=== PATIENT | male | born 1990 | race Caucasian/White ===

== ENCOUNTER 2017-04-29 18:08 | Inpatient (IN) ==
[2017-04-29 19:03] LABS: Basophils # 0.1 K/mcL (0.0-0.2); Basophils % 0.7 %; Eosinophils # 0.5 K/mcL (0.0-0.6); Eosinophils % 4.3 %; Hemoglobin 15.2 g/dL (12.9-16.9); Immature Granulocytes % 0.2 % (0-4); Lymphocytes # 1.7 K/mcL (0.6-4.6); Lymphocytes % 15.9 %; Mean Corpuscular Volume 87.8 fL (83.0-100.0); Mean Platelet Volume 10.5 fL (9.4-12.4); Monocytes # 0.6 K/mcL (0.0-1.3); Neutrophils # 7.5 K/mcL (1.6-8.9); Platelet Count 228 K/mcL (140-400); Red Blood Count 5.24 M/mcL (4.19-5.50); Red Cell Distribution Width 13.2 % (11.5-14.5); Segmented Neutrophils % 72.9 %
[2017-04-29 19:25] LABS: Alanine Aminotransferase 22 Units/L (0-55); Albumin 3.7 g/dL (3.5-5.0); Albumin/Globulin Ratio 0.9 (1.1-2.2); Alkaline Phosphatase 95 Units/L (38-126); Aspartate Amino Transferase 21 Units/L (5-34); BUN/Creatinine Ratio 9 (6-26); Blood Urea Nitrogen 9 mg/dL (8-26); Calcium 9.3 mg/dL (8.6-10.8); Carbon Dioxide 31 mEq/L (19-29); Chloride 105 mEq/L (98-109); Globulin 3.9 g/dL (2.4-3.5); Glucose 74 mg/dL (70-99); Osmolality,Calculated 289 (280-300); Potassium 4.1 mEq/L (3.5-4.5); Sodium 141 mEq/L (136-145); Total Protein 7.6 g/dL (6.0-8.3); eGFR For African Americans > 60 (> 60); eGFR For Non-African Americans > 60 (> 60)
--- NOTE | 2017-04-29 19:29 | Emergency Department Note ---
Overdose - MDM Narrative Medical decision making narrative: Bpod team will follow-up on the consult for mental health to determine final disposition - Lab Data Result diagrams: 04/29/17 18:50 04/29/17 18:50 Lab Results 04/29/17 04/29/17 04/29/17 Range/Units 18:50 18:50 18:50 WBC 10.4 (4.3-11.1) K/mcL RBC 5.24 (4.19-5.50) M/mcL Hgb 15.2 (12.9-16.9) g/dL Hct 46.0 (37.5-50.1) % MCV 87.8 (83.0-100.0) fL MCH 29.0 (28.0-33.3) pg MCHC 33.0 (31.6-35.5) g/dL RDW 13.2 (11.5-14.5) % Plt Count 228 (140-400) K/mcL MPV 10.5 (9.4-12.4) fL Immature Gran % 0.2 (0-4) % Seg Neutrophils % 72.9 % Lymphocytes % 15.9 % Monocytes % 6.0 % Eosinophils % 4.3 % Basophils % 0.7 % Neutrophils # 7.5 (1.6-8.9) K/mcL Lymphocytes # 1.7 (0.6-4.6) K/mcL Monocytes # 0.6 (0.0-1.3) K/mcL Eosinophils # 0.5 (0.0-0.6) K/mcL Basophils # 0.1 (0.0-0.2) K/mcL Sodium 141 (136-145) mEq/L Potassium 4.1 (3.5-4.5) mEq/L Chloride 105 (98-109) mEq/L Carbon Dioxide 31 H (19-29) mEq/L BUN 9 (8-26) mg/dL Creatinine 1.02 (0.72-1.25) mg/dL Est GFR ( Amer) > 60 (> 60) Est GFR (Non-Af Amer) > 60 (> 60) BUN/Creatinine Ratio 9 (6-26) Glucose 74 (70-99) mg/dL Calculated Osmolality 289 (280-300) Calcium 9.3 (8.6-10.8) mg/dL Total Bilirubin < 0.2 L (0.2-1.2) mg/dL AST 21 (5-34) Units/L ALT 22 (0-55) Units/L Alkaline Phosphatase 95 (38-126) Units/L Serum Total Protein 7.6 (6.0-8.3) g/dL Albumin 3.7 (3.5-5.0) g/dL Globulin 3.9 H (2.4-3.5) g/dL Albumin/Globulin Ratio 0.9 L (1.1-2.2) Salicylates < 5.0 L (15-30) mg/dL Urine Opiates Screen (Qatbgq=738) ng/mL Acetaminophen < 1.0 L (10-30) mcg/mL Ur Barbiturates Screen (Frjaff=826) ng/mL Ur Phencyclidine Scrn (Cutoff=25) ng/mL Ur Amphetamines Screen (Gnkrjy=1776) ng/mL U Benzodiazepines Scrn (Ofysps=288) ng/mL Urine Cocaine Screen (Cutoff= 300) ng/mL U Marijuana (THC) Screen (Cutoff = 50) ng/mL Ethyl Alcohol < 10 (0-10) mg/dL 04/29/17 Range/Units 19:41 WBC (4.3-11.1) K/mcL RBC (4.19-5.50) M/mcL Hgb (12.9-16.9) g/dL Hct (37.5-50.1) % MCV (83.0-100.0) fL MCH (28.0-33.3) pg MCHC (31.6-35.5) g/dL RDW (11.5-14.5) % Plt Count (140-400) K/mcL MPV (9.4-12.4) fL Immature Gran % (0-4) % Seg Neutrophils % % Lymphocytes % % Monocytes % % Eosinophils % % Basophils % % Neutrophils # (1.6-8.9) K/mcL Lymphocytes # (0.6-4.6) K/mcL Monocytes # (0.0-1.3) K/mcL Eosinophils # (0.0-0.6) K/mcL Basophils # (0.0-0.2) K/mcL Sodium (136-145) mEq/L Potassium (3.5-4.5) mEq/L Chloride (98-109) mEq/L Carbon Dioxide (19-29) mEq/L BUN (8-26) mg/dL Creatinine (0.72-1.25) mg/dL Est GFR ( Amer) (> 60) Est GFR (Non-Af Amer) (> 60) BUN/Creatinine Ratio (6-26) Glucose (70-99) mg/dL Calculated Osmolality (280-300) Calcium (8.6-10.8) mg/dL Total Bilirubin (0.2-1.2) mg/dL AST (5-34) Units/L ALT (0-55) Units/L Alkaline Phosphatase (38-126) Units/L Serum Total Protein (6.0-8.3) g/dL Albumin (3.5-5.0) g/dL Globulin (2.4-3.5) g/dL Albumin/Globulin Ratio (1.1-2.2) Salicylates (15-30) mg/dL Urine Opiates Screen Positive H (Zrbphx=437) ng/mL Acetaminophen (10-30) mcg/mL Ur Barbiturates Screen Negative (Xijwzw=559) ng/mL Ur Phencyclidine Scrn Negative (Cutoff=25) ng/mL Ur Amphetamines Screen Positive H (Ipqgeh=2938) ng/mL U Benzodiazepines Scrn Negative (Psfoqs=901) ng/mL Urine Cocaine Screen Positive H (Cutoff= 300) ng/mL U Marijuana (THC) Screen Positive H (Cutoff = 50) ng/mL Ethyl Alcohol (0-10) mg/dL Overdose HPI - General Chief Complaint: ED Overdose Stated Complaint: OD Source: patient Limitations: no limitations Nursing Notes Reviewed: Yes Vital Signs Reviewed: Yes - History of Present Illness HPI Narrative: Patient presents with complaint of drug overdose. Initially when I interviewed the patient he denied side ideation. He did admit later on to his mother that he did this in the in attempt to hurt himself. Patient states that he he did not know what he took. While talking to the patient he will be a note on my phone the state that he took here 30 to 45 minutes prior to EMS arrival. And he thought that fentyl was mixed in with it. He stated he snorted not injected. States he has has not done this in the past. Pt Subjective Complaint: intentional overdose - Related Data Previous Rx's Medication Instructions Recorded Penicillin VK 500 mg PO QID #28 tablet 06/17/15 Allergies Allergy/AdvReac Type Severity Reaction Status Date / Time No Known Allergies Allergy Verified 06/17/15 10:25 All systems ED: reviewed and negative except as stated. Past Medical History - Past Medical History Source: patient Medical history: Reports: no medical history Psychiatric history: Reports: anxiety, depression - Social History Smoking Status: Current every day smoker Smokeless Tobacco Status: No Alcohol use: Reports: rarely Drug use: Reports: opiates, marijuana Physical Exam - General Limitations: no limitations General appearance: obtunded - Head Head exam: atraumatic, normocephalic, normal inspection - Eye Eye exam: Present: normal appearance, PERRL, EOMI - ENT ENT exam: normal exam, normal oropharynx, mucous membranes moist - Neck Neck exam: Present: normal inspection, full ROM, trachea midline - Chest Chest inspection: Present: normal inspection, symmetric chest wall rise - Respiratory Respiratory exam: Present: normal lung sounds bilaterally - Cardiovascular Cardiovascular exam: Present: regular rate, normal rhythm, normal heart sounds - Abdominal Exam Abdominal exam: Present: soft, Non-Tender. Absent: tenderness, distention, guarding, rebound, rigidity - Extremities Exam Extremities exam: Present: normal inspection, full ROM. Absent: tenderness, pedal edema - Back Exam Back exam: Present: normal inspection, full ROM. Absent: tenderness - Neurological Exam Neurological exam: Present: alert, oriented X3 - Psychiatric Psychiatric exam: Present: normal affect, normal mood - Skin Skin exam: Present: warm, dry, intact, normal color Course Vital Signs Temperature 97.5 F L 04/29/17 18:10 Pulse Rate 81 04/29/17 18:10 Respiratory Rate 16 04/29/17 18:10 Blood Pressure 135/88 04/29/17 18:10 O2 Sat by Pulse Oximetry 98 04/29/17 18:10 Temperature 97.5 F L 04/29/17 18:10 Pulse Rate 75 04/29/17 19:26 Respiratory Rate 18 04/29/17 19:26 Blood Pressure 136/94 04/29/17 19:26 O2 Sat by Pulse Oximetry 97 04/29/17 19:26 Oxygen Delivery Oxygen Delivery Room Air Disposition Clinical Impression: Suicidal ideation Disposition: Still a Patient Referrals: NONE,PCP [Primary Care Provider] - Forms: ED Satisfaction Letter
[2017-04-29 19:32] LABS: Acetaminophen < 1.0 mcg/mL (10-30); Bilirubin,Total < 0.2 mg/dL (0.2-1.2); Ethanol < 10 mg/dL (0-10); Salicylate < 5.0 mg/dL (15-30)
[2017-04-29 20:16] LABS: Amphetamine Screen,Urine Positive ng/mL (Cutoff=1000); Barbiturate Screen,Urine Negative ng/mL (Cutoff=200); Benzodiazepines Screen,Urine Negative ng/mL (Cutoff=200); Cannabinoid Screen,Urine Positive ng/mL (Cutoff = 50); Cocaine Screen,Urine Positive ng/mL (Cutoff= 300); Opiate Screen,Urine Positive ng/mL (Cutoff=300); Phencyclidine Screen,Urine Negative ng/mL (Cutoff=25)
--- NOTE | 2017-04-29 21:01 | Emergency Department Note ---
Disposition Clinical Impression: Suicidal ideation Overdose Qualifiers: Encounter type: initial encounter Injury intent: intentional self-harm Qualified Code(s): T50.902A - Poisoning by unspecified drugs, medicaments and biological substances, intentional self-harm, initial encounter Disposition: Admitted As Inpatient Referrals: NONE,PCP [Primary Care Provider] - Forms: ED Satisfaction Letter Time of Disposition: 22:11 General Adult HPI - General Chief complaint: ED Overdose Stated complaint: OD Source: patient Limitations: no limitations - History of Present Illness Pain Scale: 0 - Related Data Previous Rx's Medication Instructions Recorded Penicillin VK 500 mg PO QID #28 tablet 06/17/15 Allergies Allergy/AdvReac Type Severity Reaction Status Date / Time No Known Allergies Allergy Verified 06/17/15 10:25 Past Medical History - Past Medical History Medical history: Reports: no medical history Psychiatric history: Reports: anxiety, depression - Social History Smoking Status: Current every day smoker Smokeless Tobacco Status: No Alcohol use: Reports: rarely Drug use: Reports: opiates, marijuana Physical Exam - General Limitations: no limitations General appearance: obtunded Course Vital Signs Temperature 97.5 F L 04/29/17 18:10 Pulse Rate 81 04/29/17 18:10 Respiratory Rate 16 04/29/17 18:10 Blood Pressure 135/88 04/29/17 18:10 O2 Sat by Pulse Oximetry 98 04/29/17 18:10 Temperature 97.5 F L 04/29/17 18:10 Pulse Rate 75 04/29/17 19:26 Respiratory Rate 18 04/29/17 19:26 Blood Pressure 136/94 04/29/17 19:26 O2 Sat by Pulse Oximetry 97 04/29/17 19:26 Oxygen Delivery Oxygen Delivery Room Air Medical Decision Making - Lab Data Result diagrams: 04/29/17 18:50 04/29/17 18:50 Lab Results 04/29/17 04/29/17 04/29/17 Range/Units 18:50 18:50 18:50 WBC 10.4 (4.3-11.1) K/mcL RBC 5.24 (4.19-5.50) M/mcL Hgb 15.2 (12.9-16.9) g/dL Hct 46.0 (37.5-50.1) % MCV 87.8 (83.0-100.0) fL MCH 29.0 (28.0-33.3) pg MCHC 33.0 (31.6-35.5) g/dL RDW 13.2 (11.5-14.5) % Plt Count 228 (140-400) K/mcL MPV 10.5 (9.4-12.4) fL Immature Gran % 0.2 (0-4) % Seg Neutrophils % 72.9 % Lymphocytes % 15.9 % Monocytes % 6.0 % Eosinophils % 4.3 % Basophils % 0.7 % Neutrophils # 7.5 (1.6-8.9) K/mcL Lymphocytes # 1.7 (0.6-4.6) K/mcL Monocytes # 0.6 (0.0-1.3) K/mcL Eosinophils # 0.5 (0.0-0.6) K/mcL Basophils # 0.1 (0.0-0.2) K/mcL Sodium 141 (136-145) mEq/L Potassium 4.1 (3.5-4.5) mEq/L Chloride 105 (98-109) mEq/L Carbon Dioxide 31 H (19-29) mEq/L BUN 9 (8-26) mg/dL Creatinine 1.02 (0.72-1.25) mg/dL Est GFR ( Amer) > 60 (> 60) Est GFR (Non-Af Amer) > 60 (> 60) BUN/Creatinine Ratio 9 (6-26) Glucose 74 (70-99) mg/dL Calculated Osmolality 289 (280-300) Calcium 9.3 (8.6-10.8) mg/dL Total Bilirubin < 0.2 L (0.2-1.2) mg/dL AST 21 (5-34) Units/L ALT 22 (0-55) Units/L Alkaline Phosphatase 95 (38-126) Units/L Serum Total Protein 7.6 (6.0-8.3) g/dL Albumin 3.7 (3.5-5.0) g/dL Globulin 3.9 H (2.4-3.5) g/dL Albumin/Globulin Ratio 0.9 L (1.1-2.2) Salicylates < 5.0 L (15-30) mg/dL Urine Opiates Screen (Isdfcg=414) ng/mL Acetaminophen < 1.0 L (10-30) mcg/mL Ur Barbiturates Screen (Yrrutb=365) ng/mL Ur Phencyclidine Scrn (Cutoff=25) ng/mL Ur Amphetamines Screen (Jwqluc=2619) ng/mL U Benzodiazepines Scrn (Jibvmo=741) ng/mL Urine Cocaine Screen (Cutoff= 300) ng/mL U Marijuana (THC) Screen (Cutoff = 50) ng/mL Ethyl Alcohol < 10 (0-10) mg/dL 04/29/17 Range/Units 19:41 WBC (4.3-11.1) K/mcL RBC (4.19-5.50) M/mcL Hgb (12.9-16.9) g/dL Hct (37.5-50.1) % MCV (83.0-100.0) fL MCH (28.0-33.3) pg MCHC (31.6-35.5) g/dL RDW (11.5-14.5) % Plt Count (140-400) K/mcL MPV (9.4-12.4) fL Immature Gran % (0-4) % Seg Neutrophils % % Lymphocytes % % Monocytes % % Eosinophils % % Basophils % % Neutrophils # (1.6-8.9) K/mcL Lymphocytes # (0.6-4.6) K/mcL Monocytes # (0.0-1.3) K/mcL Eosinophils # (0.0-0.6) K/mcL Basophils # (0.0-0.2) K/mcL Sodium (136-145) mEq/L Potassium (3.5-4.5) mEq/L Chloride (98-109) mEq/L Carbon Dioxide (19-29) mEq/L BUN (8-26) mg/dL Creatinine (0.72-1.25) mg/dL Est GFR ( Amer) (> 60) Est GFR (Non-Af Amer) (> 60) BUN/Creatinine Ratio (6-26) Glucose (70-99) mg/dL Calculated Osmolality (280-300) Calcium (8.6-10.8) mg/dL Total Bilirubin (0.2-1.2) mg/dL AST (5-34) Units/L ALT (0-55) Units/L Alkaline Phosphatase (38-126) Units/L Serum Total Protein (6.0-8.3) g/dL Albumin (3.5-5.0) g/dL Globulin (2.4-3.5) g/dL Albumin/Globulin Ratio (1.1-2.2) Salicylates (15-30) mg/dL Urine Opiates Screen Positive H (Qpygnb=802) ng/mL Acetaminophen (10-30) mcg/mL Ur Barbiturates Screen Negative (Pfhbgc=787) ng/mL Ur Phencyclidine Scrn Negative (Cutoff=25) ng/mL Ur Amphetamines Screen Positive H (Umnesj=1880) ng/mL U Benzodiazepines Scrn Negative (Wvujlq=404) ng/mL Urine Cocaine Screen Positive H (Cutoff= 300) ng/mL U Marijuana (THC) Screen Positive H (Cutoff = 50) ng/mL Ethyl Alcohol (0-10) mg/dL Attestation Statement - Attestation Attestation: Care of patient assumed from Dr. Urrutia at 9 PM pending behavioral consultation. Patient resting comfortably at the time of my exam-sleeping. Labs including urine drug screen reviewed by me. 1A contacted for consultation 22:10: Clear to be endorsed to Dr. Saez at 23:00 pending completion of behavioral consultation
[2017-04-29] MEDS ORDERED: *HR* LORazepam 2 MG/ML VIAL IM PRN (23:42)
[2017-04-29] MEDS ORDERED: hydrOXYzine pamoate 25 MG CAPSULE PO PRN (23:42)
[2017-04-29] MEDS ORDERED: Haloperidol Lactate 5 MG/ML VIAL IM PRN (23:42)
[2017-04-29] MEDS ORDERED: Ibuprofen 400 MG TABLET PO PRN (23:42)
[2017-04-29] MEDS ORDERED: Mag Hydrox/Al Hydrox/Simeth 30 ML UDC PO PRN (23:42)
[2017-04-29] MEDS ORDERED: *HR* LORazepam 1 MG TABLET PO PRN (23:42)
[2017-04-29] MEDS ORDERED: MOM Conc 10 ML UD.LIQ PO PRN (23:42)
[2017-04-29] MEDS ORDERED: Methocarbamol 750 MG TABLET PO PRN (23:49)
[2017-04-29] MEDS ORDERED: Ondansetron ODT 4 MG TAB.RAPDIS SL PRN (23:50)
[2017-04-30] MEDS ORDERED: Ibuprofen 600 MG TABLET PO PRN (00:30)
[2017-04-30] MEDS: traZODone 50 MG TABLET PO PRN ×2 (00:52→21:39)
[2017-04-30] MEDS: Nicotine 21 MG PATCH.TD24 TD SCH (09:31)
--- NOTE | 2017-04-30 12:35 | Electrocardiograph Report ---
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
--- NOTE | 2017-04-30 13:29 | Psychiatry History & Physical ---
Date of Encounter: 04/30/17 Time of Encounter: 01:20 History of Present Illness Patient Stated Chief Complaint: Drug overdose Medicare Admission Attestation: For traditional Medicare patients the provided hospital inpatient services are reasonable and necessary and in the case of services not specified as inpatient -only under 42 CFR 419.22 (n), that they are appropriately provided as inpatient services in accordance 42 CFR 412.3. For Critical Access Hospital the patient may reasonably be expected to be discharged or transferred to a hospital within 96 hours after admission to the Critical Access Hospital. Admitted From: Emergency Dept Plans for Post Hospital Care: Home History of Present Illness: Mr. Cruz is a 27 year old male who was brought to the emergency department after he overdosed on heroin. Initially patient was denying that it was a suicide attempt but then he told his mother that it was an attempt to take his life. He also texted mom that it was a suicide attempt. During the interview with me, initially he denied that it was a suicide attempt and reported that he told his mother that it was a suicide attempt so that he does not get into trouble for using drugs. We called mother who reported that patient has underlying psychiatric issues and has been self-medicating with drugs and she believed that it was a suicide attempt and he needs to be in the hospital to receive psychiatric care. I went back to the patient and told him about my conversation with his mother. Patient did open up and reports that he has been struggling from anxiety symptoms for a while. He reported restlessness nervousness tremor and shakes palpitations and racing thoughts. He also reported that he is been noticing some depression with anhedonia withdrawn behavior, hopeless and helpless feelings. Patient reported that he started using drugs approximately 8 months ago but he has been using heroine off and on. He reported that he was sober for 15 days up until yesterday when he used heroine and became unresponsive. Since patient overdosed on heroin and is reporting the above-mentioned symptoms of depression and anxiety depression and anxiety,it is decided to keep the patient on the psychiatric facility for further stabilization Patient is agreeable on staying in the hospital and receiving treatment. Past Med Surg Social Fam HX - Past Medical History Medical history: no medical history - Past Psychiatric History Psychiatric history: Reports: no psych history Past psychiatric history details: No prior psychiatric hospitalization or treatment. Patient is currently on no psychiatric medications. Family psychiatric history: No Family History of Suicide: None - Past Surgical History Surgical History: no surgical history - Social History Smoking Status: Current every day smoker Smokeless Tobacco Status: No Alcohol use: rarely Drug use: opiates, marijuana Occupational status: unemployed Current living situation: Home Activity Level: Independent ambulation Recent Out of Country Travel Within the Last 8 Weeks: No Exposure or Possible Exposure to Illness During Travel: No Additional social history: Patient was born and raised in [place]. Reported okay childhood. He graduated high school. He has one 8-year-old son from a previous relationship. Currently he is in a relationship with his girlfriend since last year and a half or so. 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 He is currently residing at his cousins with this mother and girlfriend. He denies any legal issues Medications & Allergies No Known Home Drugs 04/30/17 [History] 3 Allergy/AdvReac Type Severity Reaction Status Date / Time No Known Allergies Allergy Verified 06/17/15 10:25 Review of Systems Psychiatric: Reports: depression, anxiety, anhedonia, difficulty concentrating, hopelessness, panic attacks Mental Status Exam Patient orientation: Yes Person, Yes Time, Yes Place Level of alertness: Alert Patient appearance: Appropriate, Well Groomed Behavior: cooperative, nervous Psychomotor activity: Normal Eye contact: Maintains Eye Contact Mood description: Depressed, Anxious Affect description: constricted, dysphoric Speech pattern: Normal rate, Normal rhythm, Normal tone Speech volume: Normal Thought process: Linear, Goal Oriented Thought content: No Suicidal ideation, No Homicidal ideation, No Overt delusions Perceptual disturbances: No Auditory hallucinations, No Visual hallucinations Attention span: Capable of Focused Attention Memory description: Grossly Intact Patient reliability: Reliable Historian Intelligence estimate: Average Judgment: Limited Insight: Partial Exam - HEENT Head exam IM: Present: normal inspection Eye exam IM: Present: normal appearance ENT exam IM: Present: normal exam - Neurological Neurological exam IM: Present: alert, CN II-XII intact, normal gait, oriented X3 , reflexes normal, strengths equal and symetr throughout. Absent: motor sensory deficit, speech deficit - Respiratory Respiratory exam IM: Absent: respiratory distress - GI/Abdominal GI/Abdominal exam IM: Present: soft. Absent: tenderness - Extremities Extremities exam IM: Present: full ROM, normal inspection - Skin Skin exam IM: Present: intact Results - Vital Signs Vital signs: Temp Pulse Resp BP Pulse Ox 97.2 F L 77 16 110/69 97 04/30/17 08:00 04/30/17 08:00 04/30/17 08:00 04/30/17 08:00 04/29/17 19:26 - Labs Labs: Laboratory Last Values WBC 10.4 K/mcL (4.3-11.1) 04/29/17 18:50 RBC 5.24 M/mcL (4.19-5.50) 04/29/17 18:50 Hgb 15.2 g/dL (12.9-16.9) 04/29/17 18:50 Hct 46.0 % (37.5-50.1) 04/29/17 18:50 MCV 87.8 fL (83.0-100.0) 04/29/17 18:50 MCH 29.0 pg (28.0-33.3) 04/29/17 18:50 MCHC 33.0 g/dL (31.6-35.5) 04/29/17 18:50 RDW 13.2 % (11.5-14.5) 04/29/17 18:50 Plt Count 228 K/mcL (140-400) 04/29/17 18:50 MPV 10.5 fL (9.4-12.4) 04/29/17 18:50 Immature Gran % 0.2 % (0-4) 04/29/17 18:50 Seg Neutrophils % 72.9 % 04/29/17 18:50 Lymphocytes % 15.9 % 04/29/17 18:50 Monocytes % 6.0 % 04/29/17 18:50 Eosinophils % 4.3 % 04/29/17 18:50 Basophils % 0.7 % 04/29/17 18:50 Neutrophils # 7.5 K/mcL (1.6-8.9) 04/29/17 18:50 Lymphocytes # 1.7 K/mcL (0.6-4.6) 04/29/17 18:50 Monocytes # 0.6 K/mcL (0.0-1.3) 04/29/17 18:50 Eosinophils # 0.5 K/mcL (0.0-0.6) 04/29/17 18:50 Basophils # 0.1 K/mcL (0.0-0.2) 04/29/17 18:50 Sodium 141 mEq/L (136-145) 04/29/17 18:50 Potassium 4.1 mEq/L (3.5-4.5) 04/29/17 18:50 Chloride 105 mEq/L (98-109) 04/29/17 18:50 Carbon Dioxide 31 mEq/L (19-29) H 04/29/17 18:50 BUN 9 mg/dL (8-26) 04/29/17 18:50 Creatinine 1.02 mg/dL (0.72-1.25) 04/29/17 18:50 Est GFR ( Amer) > 60 (> 60) 04/29/17 18:50 Est GFR (Non-Af Amer) > 60 (> 60) 04/29/17 18:50 BUN/Creatinine Ratio 9 (6-26) 04/29/17 18:50 Glucose 74 mg/dL (70-99) 04/29/17 18:50 Calculated Osmolality 289 (280-300) 04/29/17 18:50 Calcium 9.3 mg/dL (8.6-10.8) 04/29/17 18:50 Total Bilirubin < 0.2 mg/dL (0.2-1.2) L 04/29/17 18:50 AST 21 Units/L (5-34) 04/29/17 18:50 ALT 22 Units/L (0-55) 04/29/17 18:50 Alkaline Phosphatase 95 Units/L (38-126) 04/29/17 18:50 Serum Total Protein 7.6 g/dL (6.0-8.3) 04/29/17 18:50 Albumin 3.7 g/dL (3.5-5.0) 04/29/17 18:50 Globulin 3.9 g/dL (2.4-3.5) H 04/29/17 18:50 Albumin/Globulin Ratio 0.9 (1.1-2.2) L 04/29/17 18:50 Salicylates < 5.0 mg/dL (15-30) L 04/29/17 18:50 Urine Opiates Screen Positive ng/mL (Rosxdu=098) H 04/29/17 19:41 Acetaminophen < 1.0 mcg/mL (10-30) L 04/29/17 18:50 Ur Barbiturates Screen Negative ng/mL (Fazueu=409) 04/29/17 19:41 Ur Phencyclidine Scrn Negative ng/mL (Cutoff=25) 04/29/17 19:41 Ur Amphetamines Screen Positive ng/mL (Wsugam=6382) H 04/29/17 19:41 U Benzodiazepines Scrn Negative ng/mL (Nfrjqt=443) 04/29/17 19:41 Urine Cocaine Screen Positive ng/mL (Cutoff= 300) H 04/29/17 19:41 U Marijuana (THC) Screen Positive ng/mL (Cutoff = 50) H 04/29/17 19:41 Ethyl Alcohol < 10 mg/dL (0-10) 04/29/17 18:50 Assessment and Plan (1) INDIRA (generalized anxiety disorder) Current visit: Yes Status: Acute Plan: Admit inpatient for safety and stabilization, Close observation, Suicide Precautions per unit protocol, Encourage participation in unit milieu, Group Therapy, Monitor sleep, Monitor appetite Additional Plan: We will start the patient on Celexa 20 mg daily and Vistaril 25 mg 3 times a day for his anxiety symptoms Risks, benefits, side effects, alternatives discussed w/pt: Yes Patient agreeable to treatment: Yes Plans for Post Hospital Care: Home Estimated Length of Stay (Days): 2 (2) Opioid abuse Current visit: Yes Status: Acute Plan: Admit inpatient for safety and stabilization, Close observation, Suicide Precautions per unit protocol, Encourage participation in unit milieu, Group Therapy, Monitor sleep, Monitor appetite Additional Plan: Patient will be counseled extensively regarding his opioid use and his psychological and physiological impact and will be helped to identify triggers and develop relapse prevention plan Risks, benefits, side effects, alternatives discussed w/pt: Yes Patient agreeable to treatment: Yes Plans for Post Hospital Care: Home Estimated Length of Stay (Days): 2
[2017-04-30] MEDS: hydrOXYzine pamoate 25 MG CAPSULE PO SCH ×2 (15:56→20:33)
[2017-05-01] MEDS: Nicotine 21 MG PATCH.TD24 TD SCH (09:02)
[2017-05-01] MEDS: hydrOXYzine pamoate 25 MG CAPSULE PO SCH ×3 (09:13→21:12)
--- NOTE | 2017-05-01 15:56 | Psychiatry Progress Note ---
Date of Encounter: 05/01/17 Time of Encounter: 14:45 Subjective Interval history: Patient is seen today for follow-up of his anxiety and opiate dependence. Staff spoke to his mom who has concerns that he may be trying to hurt himself. He denies these claims and states that he accidentally overdosed and that another time when he took sleeping pills he was not intending to kill himself but just simply trying to go to sleep. We discussed that some of his behaviors concerning even if he was an attempt to kill himself and the patient did verbalize that he understands why his mother is concerned about his mood and his behaviors. He is considering substance abuse treatment as an outpatient. He is willing to try the Celexa for mood and anxiety. He continues to deny suicidal thoughts today. He is willing to continue to participate in care and does feel he needs help coping with anxiety and stress. Review of Systems Psychiatric: Reports: depression, anxiety, abnormal sleep pattern, anhedonia, difficulty concentrating, hopelessness, irritability, panic attacks. Denies: suicidal ideation Objective: Exam Patient orientation: Yes Person, Yes Time, Yes Place Level of alertness: Alert Patient appearance: Appropriate Behavior: calm, guarded Psychomotor activity: Normal Eye contact: Maintains Eye Contact Mood description: Euthymic/stable Affect description: congruent with mood Speech pattern: Normal rate, Normal rhythm, Normal tone Speech volume: Normal Thought process: Intact, Logical, Goal Oriented Thought content: No Suicidal ideation, No Homicidal ideation Perceptual disturbances: No Auditory hallucinations, No Visual hallucinations Judgment: Limited Insight: Partial Results - Vital Signs Vital Signs: Temp Pulse Resp BP Pulse Ox 98.4 F 56 18 124/75 97 05/01/17 13:00 05/01/17 13:00 05/01/17 13:00 05/01/17 13:00 04/29/17 19:26 Assessment and Plan (1) Depression Current visit: Yes Status: Acute Plan: Continue hospitalization, Close observation, Suicide Precautions per unit protocol, Encourage participation in unit milieu, Group Therapy, Monitor sleep, Monitor appetite Additional Plan: Patient admits to some underlying depressed mood as well as anxiety symptoms. He continues to deny suicidal ideations and states that he did not intend to hurt himself but is gaining more insight into the concern his family may have about some of his actions. Continue Celexa at current dosage. Encourage positive coping strategies and group attendance. (2) INDIRA (generalized anxiety disorder) Current visit: Yes Status: Acute Plan: Continue hospitalization, Close observation, Suicide Precautions per unit protocol, Encourage participation in unit milieu, Group Therapy, Monitor sleep, Monitor appetite Risks, benefits, side effects, alternatives discussed w/pt: Yes Patient agreeable to treatment: Yes (3) Opioid abuse Current visit: Yes Status: Acute Plan: Continue hospitalization, Close observation, Suicide Precautions per unit protocol, Encourage participation in unit milieu, Group Therapy, Monitor sleep, Monitor appetite Additional Plan: We discussed that patient needs to discontinue opiate use as this has been a serious issue and affected his anxiety as well as his mood. Patient is interested in outpatient substance abuse treatment. Risks, benefits, side effects, alternatives discussed w/pt: Yes Patient agreeable to treatment: Yes Consult Discharge Plan - Plan [facility]
[2017-05-01] MEDS: traZODone 50 MG TABLET PO PRN (21:12)
[2017-05-02] MEDS: Nicotine 21 MG PATCH.TD24 TD SCH (09:21)
[2017-05-02] MEDS: hydrOXYzine pamoate 25 MG CAPSULE PO SCH (09:24)
--- NOTE | 2017-05-02 10:08 | Discharge Summary ---
Date of Encounter: 05/02/17 Time of Encounter: 09:00 Diagnosis - Discharge Diagnosis (1) INDIRA (generalized anxiety disorder) Priority: Primary Status: Acute (2) Depression Priority: Primary Status: Acute Qualifiers: Depression Type: unspecified Qualified Code(s): F32.9 - Major depressive disorder, single episode, unspecified (3) Opioid abuse Priority: Secondary Status: Acute Medications - Discharge Medications Prescriptions: Citalopram [CeleXA] 20 mg PO DAILY #30 tablet hydrOXYzine pamoate [HydrOXYzine Pamoate] 25 mg PO TID #90 capsule traZODone [TraZODone] 50 mg PO HS PRN #90 tablet PRN Reason: Insomnia Citalopram [CeleXA] 20 mg PO DAILY #30 tablet 05/02/17 [Rx] hydrOXYzine pamoate [HydrOXYzine Pamoate] 25 mg PO TID #90 capsule 05/02/17 [Rx] traZODone [TraZODone] 50 mg PO HS PRN #90 tablet 05/02/17 [Rx] 3 Allergy/AdvReac Type Severity Reaction Status Date / Time No Known Allergies Allergy Verified 06/17/15 10:25 Provider Date of admission: 04/29/17 23:42 Primary care physician: PCP NONE Discharging clinician: Chio Mcdowell Assessment and Plan - Patient/Caregiver Discharge Instructions Activity: resume usual activities as tolerated Diet: regular diet - Follow up Plan [facility] - 05/25/17 2:00 pm (The above appointment is with Cass Willis for outpatient psychiatric assessment and medication management services on at in the same office. Please arrive 15 minutes early to complete paperwork. Please bring your insurance card, photo ID and medications in their original bottles. If you do not have insurance, bring proof of income to apply for the sliding fee scale. If you are unable to keep this appointment, 24 hour business notice of cancellation is expected. This is the first available appointment. You may contact the office regularly to check for cancellations that may allow you to be seen sooner. ) [facility] 9:00 am (The above appointment is with [facility] for substance abuse counseling services. This is the first available new patient appointment. You may contact the office regularly to check for cancellations that may allow you to be seen sooner.) Functional capacity at discharge: independent ambulation Overall status at discharge: Stable Disposition: Home, Self-Care Hospital Course Hospital course: Mr. Cruz is a 27 year old male with a history of opiate dependence, anxiety, depression who presented to the hospital for accidental overdose of opiates. Patient's mom had concerns that he may have overdosed intentionally. He was admitted to for psychiatric stabilization. He was incorporated into the therapeutic milieu. He was also offered group and individual as well as recreational therapy. He wasoffered psychoeducational materials and supportive therapy. Patient was initially reluctant to engage in treatment because he did not feel that he intended to kill himself. He states that his mother was overreacting. However, he did start to gain some insight into his behaviors and how they may be negatively affecting his life and his mood. Patient realizes that overuse heroin and other drugs actually may appear to others like he does not care if he lives or dies. He does report that he knows his opiate use is negatively affecting his life and he would like to stop. He does report some anxiety symptoms but states that normally he does not feel depressed. Mood is exacerbated by overuse of the heroin. He did start Celexa for anxiety and depression and Vistaril for anxiety symptoms. He also was offered trazodone for sleep. He tolerated these medications well. Throughout the course of the hospital stay the patient became more willing to continue treatment and considering engaging in outpatient substance abuse treatment. At the time of discharge mom did state she noticed an improvement in his mood. Patient report overall improvement in his mood and he denied suicidal or homicidal ideation, intent, or plan. He is discharged in stable condition. - Time Spent with Patient Total time spent providing and/or coordinating discharge services: Greater than 30 minutes Quality - Multiple Antipsychotics Patient discharged on 2 or more antipsychotic medications: No Procedures - Procedures Procedures: Medication Management, Crisis Stabilization, Supportive Therapy, Group Therapy, Psychoeducational Therapy Mental Status Exam - Mental Status Exam Patient orientation: Yes Person Level of alertness: Alert Patient appearance: Appropriate, Well Groomed Behavior: calm, cooperative Psychomotor activity: Normal Eye contact: Maintains Eye Contact Mood description: Euthymic/stable Affect description: congruent with mood Speech pattern: Normal rate, Normal rhythm, Normal tone Speech Volume: Normal Thought process: Intact, Linear, Goal Oriented Thought Content: Yes Intact, No Suicidal ideation, No Homicidal ideation Perceptual Disturbances: Yes Reacting to internal stimuli Judgment: Limited Insight: Partial
[2017-05-02 10:19] VITALS: BP 116/85
== END 2017-05-02 11:30 | disposition home or self-care (01) | DRG 756 ==
LOC: EMEROO 18:08 → 1ANU 18:08
PROVIDERS: ADMIT Psychiatry & Neurology Psychiatry; ATTEND Psychiatry & Neurology Psychiatry